=== PATIENT | female | born 1970 | race African-American/Black ===

== ENCOUNTER 2018-02-10 14:45 | Emergency (ER) | payer BC ==
[~2018-02-10] VITALS: Ht 172.7 cm; Wt 67.0 kg
[2018-02-10] MEDS ORDERED: TETANUS, DIPHTHERIA, PERTUSSIS VAC/PF 0.5ML (>7YR OLD) IM ONE (17:00)
[2018-02-10] MEDS ORDERED: IBUPROFEN 600MG TABLET PO ONE (17:00)
[2018-02-10] MEDS ORDERED: LIDOCAINE HCL 1% 20ML VIAL (Pyxis) INJ MC ONE (17:00)
[2018-02-10] MEDS ORDERED: BACITRACIN ZINC OINT UDPKT TOP ONE (17:00)
[2018-02-10 18:57] VITALS: BP 120/73
== END 2018-02-10 19:31 | disposition home or self-care (01) ==
LOC: ER 15:00
DX: S61.011A Laceration without foreign body of right thumb without damage to nail, initial encounter (principal); X58.XXXA Exposure to other specified factors, initial encounter; Y93.89 Activity, other specified; Y92.89 Other specified places as the place of occurrence of the external cause; Y99.8 Other external cause status
CPT/HCPCS: 12002; 73140; 81025; 90471; 90715; 99284; J3490; Z7610; 99283